=== PATIENT | female | born 1970 | race Caucasian/White ===

== ENCOUNTER 2016-10-14 08:42 | Day surgery (SDC) | payer MEDICAID, MEDICARE ==
[2016-10-14] MEDS ORDERED: NALOXONE HCL INJ/PF 0.4 MG/1 ML SDV ONE (08:47)
[2016-10-14] MEDS ORDERED: GLYCOPYRROLATE INJ 0.4 MG/2 ML VIAL ONE (08:47)
[2016-10-14] MEDS ORDERED: ONDANSETRON HCL INJ/PF 4 MG/2 ML SDV ONE (08:47)
[2016-10-14] MEDS ORDERED: FLUMAZENIL INJ 0.5 MG/5 ML VIAL ONE (08:48)
[2016-10-14] MEDS ORDERED: EPINEPHRINE INJ 1 MG/10 ML DISP.SYRIN ONE (08:48)
[2016-10-14] MEDS: MIDAZOLAM 2 MG/2 ML INJ ONE ×4 (09:19→09:30)
[2016-10-14] MEDS: FENTANYL CITRATE INJ/PF 100 MCG/2 ML AMPUL ONE ×2 (09:21→09:26)
[2016-10-14 10:35] LABS: ABSOLUTE EOSINOPHILS # (AUTO) 0.1 10^3/uL (0.0-0.6); ABSOLUTE LYMPHOCYTES (AUTO) 2.5 10^3/uL (0.5-4.7); ABSOLUTE MONOCYTES (AUTO) 0.4 10^3/uL (0.1-1.4); ABSOLUTE NEUT (AUTO) 2.7 10^3/uL (1.7-8.2); BASOPHILS % (AUTO) 0.4 % (0-2); EOSINOPHILS % (AUTO) 1.8 % (0-6); HEMATOCRIT 33.4 % (36.0-47.0); HEMOGLOBIN 11.7 g/dL (12.0-15.5); HGB HCT DIFFERENCE 1.7; LYMPHOCYTES % (AUTO) 43.3 % (13-45); MEAN CORPUSCULAR HEMOGLOBIN 31.1 pg (27.0-33.4); MEAN CORPUSCULAR HGB CONC 34.9 g/dL (32.0-36.0); MEAN CORPUSCULAR VOLUME 89 fl (80-97); MONOCYTES % (AUTO) 7.2 % (3-13); RED BLOOD COUNT 3.75 10^6/uL (3.72-5.28); RED CELL DISTRIBUTION WIDTH 12.2 % (11.5-14.0); SEGMENTED NEUTROPHILS % (AUTO) 47.3 % (42-78); WHITE BLOOD COUNT 5.7 10^3/uL (4.0-10.5)
[2016-10-14 10:46] VITALS: BP 94/64
[2016-10-14 11:03] LABS: IRON 83.8 ug/dL (37-170)
[2016-10-14 11:50] LABS: C-REACTIVE PROTEIN < 5.0 mg/L (<10.0)
--- NOTE | 2016-10-14 13:13 | OPERATIVE REPORT E ---
Operative Report NAME: ARASELI BOUCHER : 1970 AGE: 46Y DATE OF SURGERY: 10/14/2016 ROOM: PREOPERATIVE DIAGNOSES: 1. Abdominal pain. 2. Diarrhea. 3. Dysphagia. POSTOPERATIVE DIAGNOSES: 1. Esophagitis, mild. 2. Gastritis, mild. 3. Duodenitis, mild. PROCEDURES: 1. Esophagoscopy. 2. Gastroscopy. 3. Duodenoscopy. SURGEON: JOSEPH PRESTON M.D. TISSUE REMOVED OR ALTERED: Gastric biopsy for H. pylori. ANESTHESIA: Versed 4, fentanyl 100. DESCRIPTION OF PROCEDURE: Baby scope passed under guided vision, no difficulties. Esophagoscopy junction at 35 cm. No stricture. No malignancy. Mild esophagitis. Gastroscopy: No ulcers. Mild gastritis. Duodenoscopy: No ulcers. Mild duodenitis. CONCLUSION: Upper scope shows no ulcers, no malignancy. Mild reflux. Mild esophagitis, mild gastritis, mild duodenitis. DISCHARGE PLAN: Hold aspirin. Awaiting biopsy, lab study. Consider colonoscopy. DICTATING PHYSICIAN: JOSEPH PRESTON M.D. [id number] PHY#: [id number] ID: [id number] JOB#: [id number] ACCT: [id number] cc:JOSEPH PRESTON M.D. >
[2016-10-15 08:03] LABS: VITAMIN D 25-HYDROXY 24.7 ng/mL (30.0-100.0)
[2016-10-16 07:57] LABS: DEAMIDATED GLIADIN IGA AB 11 units (0-19); DEAMIDATED GLIADIN IGG AB 2 units (0-19); IMMUNOGLOBULIN A 2 171 mg/dL (87-352); T-TRANSGLUTAMINASE (TTG) IGG <2 U/mL (0-5)
--- NOTE | 2016-10-16 09:46 | DISCHARGE SUMMARY E ---
Discharge Summary NAME: ARASELI BOUCHER : 1970 AGE: 46Y ADMITTED: 10/14/2016 DISCHARGED: 10/14/2016 PROCEDURE: EGD, biopsy. HISTORY: Patient is 46, presented with dysphagia. Upper scope shows no ulcers, mild esophagitis, gastritis, duodenitis. DISCHARGE PLAN: Hold aspirin. Awaiting lab studies. Consider colonoscopy. Followup office visit in the next few days. DICTATING PHYSICIAN: JOSEPH PRESTON M.D. [id number] PHY#: [id number] ID: [id number] JOB#: [id number] ACCT: [id number] cc:JOSEPH PRESTON M.D. >
== END 2016-10-14 10:50 | disposition home or self-care (01) ==
LOC: END 08:42
PROVIDERS: ATTEND Specialist
PROC: 0DB68ZX Excision of Stomach, Via Natural or Artificial Opening Endoscopic, Diagnostic (ICD-10-PCS; principal; 2016-10-14 09:00)
DX: K21.0 Gastro-esophageal reflux disease with esophagitis (principal); D50.9 Iron deficiency anemia, unspecified; K29.50 Unspecified chronic gastritis without bleeding; K29.80 Duodenitis without bleeding; Z87.891 Personal history of nicotine dependence; Z79.899 Other long term (current) drug therapy; Z79.891 Long term (current) use of opiate analgesic
CPT/HCPCS: 43239; 86677 ×3; 36415; 82306; 82607; 82728; 83540; 85025; 86140; 83520 ×5; 88305 ×2; J2250; J3010; J2405; J0171; J2310; J3490

== ENCOUNTER → 2016-11-17 | Outpatient (CLI) | payer MEDICARE, MEDICAID ==
--- NOTE | 2016-11-17 18:32 | RADIOLOGY REPORT (SQ) ---
EXAM DESCRIPTION: BARIUM SWALLOW ESOPHAGUS COMPLETED DATE/TIME: 11/17/2016 9:59 am REASON FOR STUDY: DYSPHAGIA R13.0 APHAGIA COMPARISON: None. TECHNIQUE: Under fluoroscopic guidance, patient ingested effervescent granules followed by thick and thin barium. Fluoroscopic spot images and routine radiographic images acquired and stored on PACS. 12 MM BARIUM TABLET GIVEN: Yes. No significant delay in passage. LIMITATIONS: None. FLUOROSCOPY TIME: FLUORO TIME: 45 seconds 8 series of digital images saved to PACS. FINDINGS: NEUROMUSCULAR COORDINATION OF SWALLOW: Normal. No aspiration. ESOPHAGEAL MOTILITY: Mild dysmotility, with occasional tertiary contractions. ESOPHAGEAL MUCOSA: Normal mucosa without masses or ulceration. GASTRO-ESOPHAGEAL JUNCTION: No hiatal hernia or reflux. NON-GI TRACT STRUCTURES: No significant finding. OTHER: No other significant finding. IMPRESSION: Mild esophageal dysmotility, with occasional tertiary contractions COMMENT: Quality ID [id number]: Final reports for procedures using fluoroscopy that document radiation exp osure indices, or exposure time and number of fluorographic images (if radiation exposure indices are not available) TECHNICAL DOCUMENTATION: JOB ID: [id number] [employer]- All Rights Reserved
== END ==
LOC: RAD 09:15
PROVIDERS: ATTEND Specialist
DX: R13.0 Aphagia (principal)
CPT/HCPCS: 74220

== ENCOUNTER 2016-12-25 08:29 | Day surgery (SDC) | payer MEDICARE, MEDICAID ==
--- NOTE | 2016-12-18 18:09 | HISTORY AND PHYSICAL E ---
History and Physical NAME: ARASELI BOUCHER : 1970 AGE: 46Y ADMITTED: 12/25/2016 ROOM: CHIEF COMPLAINT: Abdominal pain. HISTORY OF PRESENT ILLNESS: The patient was seen 11/20, complaining of constipation, change in bowel habits. She is admitted for colon screening. She does have a family history of colorectal polyps. She does have change in her bowel habits. She is being admitted for colon exam. The patient did have a barium swallow, it shows some esophageal dysmotility, tertiary contraction. She is referred to us by Dr. Capo Renee, [facility] in [place], [place]. The patient did have dysphagia. Upper scope shows no stricture, no ulcers, mild esophagitis, gastritis, duodenitis. FAMILY HISTORY: Her mom has leukemia. Her father had cancer. MEDICATIONS: 1. Oxycodone for pain. 2. Neurontin. 3. Probiotic. PHYSICAL EXAMINATION: VITAL SIGNS: Blood pressure 100/60, pulse 70, respirations 18, temperature 98. HEAD, EARS, EYES, NOSE AND THROAT: Normal. ABDOMEN: Soft. NEUROLOGIC: Exam negative. CONCLUSION: Colon screening. PLAN: Colonoscopy, colon exam scheduled for 12/25. DICTATING PHYSICIAN: JOSEPH PRESTON M.D. [id number] [facility]#: [id number] ID: [id number] JOB#: [id number] ACCT: [id number] cc:JOSEPH PRESTON M.D. >
[~2016-12-25 08:29] MED LIST: EPINEPHRINE INJ 1 MG/10 ML DISP.SYRIN ONE; FENTANYL CITRATE INJ/PF 100 MCG/2 ML AMPUL ONE; FLUMAZENIL INJ 0.5 MG/5 ML VIAL ONE; GLUCAGON,HUMAN RECOMB 1 MG INJ ONE; GLYCOPYRROLATE INJ 0.4 MG/2 ML VIAL ONE; NALOXONE HCL INJ/PF 0.4 MG/1 ML SDV ONE; ONDANSETRON HCL INJ/PF 4 MG/2 ML SDV ONE
[2016-12-25] MEDS ORDERED: MIDAZOLAM 2 MG/2 ML INJ ONE (09:00)
[2016-12-25] MEDS: MIDAZOLAM 2 MG/2 ML INJ ONE ×3 (09:04→10:48)
--- NOTE | 2016-12-25 09:15 | EKG REPORT ---
SEVERITY:- NORMAL ECG - SINUS RHYTHM : Confirmed by: Margaret Harrington 25-Dec-2016 09:15:14
[2016-12-25 09:49] LABS: ABSOLUTE LYMPHOCYTES (AUTO) 2.1 10^3/uL (0.5-4.7); ABSOLUTE MONOCYTES (AUTO) 0.4 10^3/uL (0.1-1.4); ABSOLUTE NEUT (AUTO) 3.6 10^3/uL (1.7-8.2); BASOPHILS % (AUTO) 0.3 % (0-2); EOSINOPHILS % (AUTO) 0.8 % (0-6); HEMATOCRIT 36.2 % (36.0-47.0); HEMOGLOBIN 12.6 g/dL (12.0-15.5); HGB HCT DIFFERENCE 1.6; MEAN CORPUSCULAR HEMOGLOBIN 30.5 pg (27.0-33.4); MEAN CORPUSCULAR HGB CONC 34.8 g/dL (32.0-36.0); MEAN CORPUSCULAR VOLUME 88 fl (80-97); MONOCYTES % (AUTO) 6.3 % (3-13); RED BLOOD COUNT 4.13 10^6/uL (3.72-5.28); RED CELL DISTRIBUTION WIDTH 11.8 % (11.5-14.0); SEGMENTED NEUTROPHILS % (AUTO) 58.6 % (42-78); WHITE BLOOD COUNT 6.1 10^3/uL (4.0-10.5)
[2016-12-25 10:19] LABS: CREATINE KINASE MB 0.56 ng/mL (<4.55)
[2016-12-25 10:21] LABS: TROPONIN I < 0.012 ng/mL
--- NOTE | 2016-12-25 11:48 | DISCHARGE SUMMARY E ---
Discharge Summary NAME: ARASELI BOUCHER : 1970 AGE: 46Y ADMITTED: 12/25/2016 DISCHARGED: 12/25/2016 SUMMARY: This 46-year-old female presented with change in bowel habits, constipation, family history of polyps. She underwent colonoscopy, successful to the cecum. She did have a 2 mm polyp at the anal area, hyperplastic, benign, small to biopsy, and external hemorrhoids. DISCHARGE PLAN: 1. Assurance. 2. Soft diet. 3. Follow-up office visit in the next few days. 4. Consider follow-up colonoscopy 5 to 10 years. DICTATING PHYSICIAN: JOSEPH PRESTON M.D. [id number] [id number] PHY#: [id number] ID: [id number] JOB#: [id number] ACCT: [id number] cc:JOSEPH PRESTON M.D. >
--- NOTE | 2016-12-25 11:53 | OPERATIVE REPORT E ---
Operative Report NAME: ARASELI BOUCHER : 1970 AGE: 46Y DATE OF SURGERY: 12/25/2016 ROOM: PREOPERATIVE DIAGNOSES: 1. Change of bowel habits. 2. Abdominal pain. POSTOPERATIVE DIAGNOSES: 1. External hemorrhoids. 2. Diminutive polyp 1 mm at the anal area, small to biopsy. PROCEDURE: Colonoscopy. SURGEON: JOSEPH PRESTON M.D. TISSUE REMOVED OR ALTERED: None. ANESTHESIA: Versed 6, fentanyl 100. Prior colonoscopy patient had chest pain. Cardiac workup, including EKG enzyme was negative and we proceeded to colonoscopy. DESCRIPTION OF PROCEDURE: Sigmoid descending colon normal. Transverse colon normal. Ascending, cecum normal. Adequate prep. Good visualization all the way to the cecum. Cecum normal. Ascending colon normal. Transverse colon normal. Sigmoid descending colon normal. Rectal exam shows 2 mm polyp, benign, close to the anal verge, small to biopsy, and external hemorrhoid. DISCHARGE PLAN: Soft diet. Hold aspirin, nonsteroidal for 3 days. Consider followup colonoscopy after 5 years. DICTATING PHYSICIAN: JOSEPH PRESTON M.D. [id number] [id number] PHY#: [id number] ID: [id number] JOB#: [id number] ACCT: [id number] cc:JOSEPH PRESTON M.D. >
[2016-12-25 11:59] VITALS: BP 98/65
== END 2016-12-25 12:03 | disposition home or self-care (01) ==
LOC: END 08:29
PROVIDERS: ATTEND Specialist
PROC: 0DJD8ZZ Inspection of Lower Intestinal Tract, Via Natural or Artificial Opening Endoscopic (ICD-10-PCS; principal; 2016-12-25 09:00)
DX: K63.5 Polyp of colon (principal); K64.4 Residual hemorrhoidal skin tags; Z79.899 Other long term (current) drug therapy
CPT/HCPCS: 45378; 36415; 82553; 82550; 85025; 84484; 93005; 93010; J2250; J3010; J1610; J0171; J2310; J2405; J3490